=== PATIENT | female | born 1935 | race Asian ===

== ENCOUNTER 2017-09-20 19:09 | Emergency (ER) | payer MEDICARE ==
[~2017-09-20] VITALS: Ht 149.9 cm; Wt 53.6 kg
[2017-09-20] MEDS ORDERED: AMLO-512 PO (19:21)
[2017-09-20] MEDS ORDERED: SITA1TAB6 PO (19:21)
[2017-09-20] MEDS ORDERED: LISI-662 PO (19:21)
[2017-09-20] MEDS ORDERED: ASPI-1182 PO (19:21)
[2017-09-20 19:23] LABS: GLUCOSE,POINT OF CARE 142 MG/DL (70-110)
[2017-09-20 19:40] VITALS: BP 149/74
[2017-09-20] MEDS ORDERED: ERYTHROMYCIN 0.5% 3.5 GM TUBE OPHTHALMIC OINTMENT OD ONE (19:45)
[2017-09-20] MEDS ORDERED: ACETAMINOPHEN 325 MG TABLET PO ONE (19:45)
== END 2017-09-20 20:36 | disposition home or self-care (01) ==
LOC: EMS 19:11
DX: H00.014 Hordeolum externum left upper eyelid (principal); J45.909 Unspecified asthma, uncomplicated; E11.9 Type 2 diabetes mellitus without complications; E78.00 Pure hypercholesterolemia, unspecified; I10 Essential (primary) hypertension
CPT/HCPCS: 99283